=== PATIENT | female | born 1985 | race Caucasian/White ===

== ENCOUNTER 2018-10-08 08:47 | Emergency (ER) | payer OTHER ==
--- NOTE | 2018-10-08 09:08 | EDPHY ---
H & P Stated Complaint: abd pain, n/v Time Seen by Provider: 10/08/18 09:07 HPI/ROS: CHIEF COMPLAINT: Abdominal cramping, vomiting HISTORY OF PRESENT ILLNESS: The patient presents to the ED with complaints of diffuse abdominal cramping and vomiting that began earlier today. The patient denies any melena, diarrhea or hematemesis. The patient denies history of prior abdominal disease or surgery. She denies any complaints of dysuria or flank pain. The patient felt well yesterday. She denies recent antibiotic use or travel outside the [place]. Patient does take occasional NSAID but is not a chronic daily user. REVIEW OF SYSTEMS: A comprehensive 10 point review of systems is otherwise negative aside from elements mentioned in the history of present illness. Source: Patient Exam Limitations: No limitations - Personal History Current Tetanus/Diphtheria Vaccine: Yes Current Tetanus Diphtheria and Acellular Pertussis (TDAP): Yes Tetanus Vaccine Date: WITHIN 10 YRS - Medical/Surgical History Hx Asthma: Yes Hx Chronic Respiratory Disease: No Hx Diabetes: No Hx Cardiac Disease: No Hx Renal Disease: No Hx Cirrhosis: No Hx Alcoholism: No Hx HIV/AIDS: No Hx Splenectomy or Spleen Trauma: No Other PMH: med [id number], frequent uti since 05/2015. surg-LEEP - Social History Smoking Status: Former smoker - Physical Exam Exam: General Appearance: Alert, no distress Eyes: Pupils equal and round no pallor or injection ENT, Mouth: Mucous membranes moist Respiratory: There are no retractions, lungs are clear to auscultation Cardiovascular: Regular rate and rhythm Gastrointestinal: Diffuse mild tenderness, hyperactive bowel sounds, no peritoneal signs Neurological: 5/5 strength noted all 4 extremities Skin: Warm and dry, no rashes Musculoskeletal: Neck is supple nontender Extremities: symmetrical, full range of motion Constitutional: Initial Vital Signs Temperature (C) 36.5 C 10/08/18 08:53 Heart Rate 80 10/08/18 08:53 Respiratory Rate 16 10/08/18 08:53 Blood Pressure 105/75 10/08/18 08:53 O2 Sat (%) 100 10/08/18 08:53 O2 Delivery Mode Room Air Allergies/Adverse Reactions: latex Allergy (Verified 02/26/16 12:27) trazodone Allergy (Verified 02/26/16 12:27) Home Medications: Medication Instructions Recorded Ondansetron Odt [Zofran Odt] 4 mg PO Q4PRN PRN #20 tab 10/08/18 Medical Decision Making - Diagnostics Imaging Results: Imaging Impressions Abdomen Ultrasound 10/08/18 10:51 Impression: Tiny pericholecystic fluid collection. Otherwise negative. Results discussed with Dr. Lisandro Ellis at 11:31 AM. ED Course/Re-evaluation: Patient presents the ED with abdominal cramping and vomiting. She was noted to have minimal abdominal tenderness on exam which seems to be most localized to the right upper quadrant. The patient had an IV established. She was treated with IV fluids and anti emetics. Laboratory testing including CBC, serum chemistries, liver function tests are normal. She had a slightly elevated lipase of 335. Right upper quadrant ultrasound was performed which demonstrates no evidence of cholelithiasis or cholecystitis. The patient had serial examinations performed by myself in the ED over 2 and 0.5 hr period. At 11:30 a.m. Her abdomen is soft and she is feeling better. I do feel that she can safely be discharged home. She is given customary aftercare instructions and return precautions. Differential Diagnosis: Differential diagnosis considered includes gastroenteritis, gastritis, peptic ulcer disease, pancreatitis, cholecystitis, perforation, obstruction, appendicitis - Data Points Laboratory Results: Laboratory Results 10/08/18 10:00 10/08/18 10:00 10/08/18 10/08/18 10/08/18 10:00 10:00 10:00 WBC 10.23 10^3/uL H 10^3/uL (3.80-9.50) RBC 4.85 10^6/uL 10^6/uL (4.18-5.33) Hgb 14.6 g/dL g/dL (12.6-16.3) Hct 42.8 % % (38.0-47.0) MCV 88.2 fL fL (81.5-99.8) MCH 30.1 pg pg (27.9-34.1) MCHC 34.1 g/dL g/dL (32.4-36.7) RDW 12.2 % % (11.5-15.2) Plt Count 229 10^3/uL 10^3/uL (150-400) MPV 10.7 fL fL (8.7-11.7) Neut % (Auto) 78.1 % H % (39.3-74.2) Lymph % (Auto) 14.3 % L % (15.0-45.0) [place] % (Auto) 4.7 % % (4.5-13.0) Eos % (Auto) 1.7 % % (0.6-7.6) Baso % (Auto) 0.7 % % (0.3-1.7) Nucleat RBC Rel Count 0.0 % % (0.0-0.2) Absolute Neuts (auto) 8.00 10^3/uL H 10^3/uL (1.70-6.50) Absolute Lymphs (auto) 1.46 10^3/uL 10^3/uL (1.00-3.00) Absolute Monos (auto) 0.48 10^3/uL 10^3/uL (0.30-0.80) Absolute Eos (auto) 0.17 10^3/uL 10^3/uL (0.03-0.40) Absolute Basos (auto) 0.07 10^3/uL 10^3/uL (0.02-0.10) Absolute Nucleated RBC 0.00 10^3/uL 10^3/uL (0-0.01) Immature Gran % 0.5 % % (0.0-1.1) Immature Gran # 0.05 10^3/uL 10^3/uL (0.00-0.10) Sodium 138 mEq/L mEq/L (135-145) Potassium 4.5 mEq/L mEq/L (3.5-5.2) Chloride 105 mEq/L mEq/L (97-110) Carbon Dioxide 23 mEq/l mEq/l (22-31) Anion Gap 10 mEq/L mEq/L (6-14) BUN 12 mg/dL mg/dL (7-23) Creatinine 0.8 mg/dL mg/dL (0.6-1.0) Estimated GFR > 60 Glucose 80 mg/dL mg/dL (70-100) Calcium 8.9 mg/dL mg/dL (8.5-10.4) Total Bilirubin 0.2 mg/dL mg/dL (0.1-1.4) Conjugated Bilirubin 0.1 mg/dL mg/dL (0.0-0.5) Unconjugated Bilirubin 0.1 mg/dL mg/dL (0.0-1.1) AST 32 IU/L IU/L (14-46) ALT 41 IU/L IU/L (9-52) Alkaline Phosphatase 68 IU/L IU/L (38-126) Total Protein 6.8 g/dL g/dL (6.3-8.2) Albumin 4.1 g/dL g/dL (3.5-5.0) Lipase 335 IU/L H IU/L (23-300) Beta HCG, Qual NEGATIVE Medications Given: Discontinued Medications Sodium Chloride (Ns) 1,000 mls @ 0 mls/hr IV EDNOW ONE; Wide Open PRN Reason: Protocol Stop: 10/08/18 09:12 Last Admin: 10/08/18 10:40 Dose: 1,000 mls Ondansetron HCl (Zofran) 4 mg IVP EDNOW ONE Stop: 10/08/18 09:15 Last Admin: 10/08/18 10:41 Dose: 4 mg Departure - Departure Disposition: Home, Routine, Self-Care Clinical Impression: Abdominal pain Qualifiers: Abdominal location: epigastric Qualified Code(s): R10.13 - Epigastric pain Vomiting Qualifiers: Vomiting Intractability: non-intractable Nausea presence: with nausea Condition: Good Instructions: Gastroenteritis (ED) Additional Instructions: Sometimes we are unable to diagnose an obvious cause of abdominal pain in the Emergency Department. Based upon our evaluation today, I believe your having a mild intestinal viral infection. Because more serious conditions can be difficult to diagnose early in the course of their presentation, we ask that you return to the Emergency Department in 8-12 hours for a recheck if you are still having pain. This is necessary to exclude the development of a more serious condition such as appendicitis or other intra-abdominal emergency. In the event your pain markedly increases before that time or you develop intractable vomiting or fever return to the Emergency Department immediately.
[2018-10-08] MEDS ORDERED: NS 1,000 ML IV ONE (09:11)
[2018-10-08] MEDS ORDERED: ONDANSETRON 4 MG/2 ML VIAL IVP ONE (09:14)
[2018-10-08 10:35] LABS: PLATELET COUNT 229 10^3/uL (150-400)
[2018-10-08 11:54] VITALS: BP 98/75
== END 2018-10-08 11:52 | disposition home or self-care (01) ==
DX: R10.13 Epigastric pain (principal); R10.11 Right upper quadrant pain; R11.2 Nausea with vomiting, unspecified; E86.9 Volume depletion, unspecified; Z87.891 Personal history of nicotine dependence
CPT/HCPCS: 96374; J2405